=== PATIENT | male | born 1935 | race Caucasian/White ===

== ENCOUNTER 2017-06-05 09:38 | Inpatient (IN) | payer OTHER, MEDICARE ==
[~2017-06-05] VITALS: Ht 160 cm; Wt 83.6 kg
[~2017-06-05 09:38] MED LIST: AMIODARONE HCL200 MG PO; ARICEPT ODT10 MG PO; ATELVIA35 MG PO; BUS5 PO; CITRACAL + D 311 TAB PO; COZ25 PO; ENTERIC ASPIRI325 MG PO; FOLIC ACID PO; L20 PO; METOPROLOL SUCC25 M1 PO; NAMENDA10 M1 PO; NIASPAN500 MG PO; PLA75 PO; PRESERVISION AR1 SGL PO; PRI20 PO; SERTRALINE HYDR50 M1 PO; SORBITRATE PO; SOTALOL HCL AF80 MG PO; ZETIA10 M1 PO; ZOC20 PO; [UNRECOGNIZED DRUG - OTHER] PO
[2017-06-05] MEDS ORDERED: XARELTO10 M1 PO (10:12)
[2017-06-05] MEDS ORDERED: MASON NATURAL1000 IU PO (10:13)
[2017-06-05 10:35] LABS: BASOPHIL % 0.5 % (0-2); PLATELET COUNT 227 x10^3mcL (130-400); RED CELL DISTRIBUTION WIDTH 13.7 % (11.5-14.5)
[2017-06-05 10:40] LABS: CALCIUM 9.6 mg/dL (8.5-10.1); CARBON DIOXIDE 30.8 mmol/L (21-32); CHLORIDE SERUM 103 mmol/L (98-107); CREATININE SERUM 1.3 mg/dL (0.7-1.3); GLUCOSE SERUM 150 mg/dL (74-106); POTASSIUM SERUM 4.5 mmol/L (3.5-5.1); SODIUM SERUM 142 mmol/L (136-145)
[2017-06-05 10:46] LABS: ALBUMIN 3.5 g/dL (3.4-5.0); ALKALINE PHOSPHATASE 129 U/L (46-116); ALT/SGPT 23 U/L (16-63); AST/SGOT 24 U/L (15-37); BILIRUBIN TOTAL 0.64 mg/dL (0.20-1.00); TOTAL PROTEIN, SERUM 8.2 g/dL (6.4-8.2)
[2017-06-05 12:20] LABS: MAGNESIUM 2.1 mg/dL (1.8-2.4); PHOSPHOROUS 2.9 mg/dL (2.5-4.9)
[2017-06-05 12:40] LABS: T3 TOTAL 0.78 ng/mL
[2017-06-05 12:44] LABS: FREE T4 0.95 ng/dL (0.76-1.46); FREE THYROXINE INDEX 2.8 ug/dL (1.4-4.5); T4(THYROXINE) 7.7 ug/dL (4.7-13.3)
[2017-06-05 12:55] VITALS: BP 135/86
[2017-06-05 16:39] VITALS: BP 143/85
[2017-06-05 17:51] VITALS: BP 110/80
[2017-06-05 21:59] VITALS: BP 115/75
[2017-06-06 05:24] VITALS: BP 124/80
[2017-06-06 06:17] LABS: BASOPHIL % 0.4 % (0-2); PLATELET COUNT 181 x10^3mcL (130-400); RED CELL DISTRIBUTION WIDTH 13.4 % (11.5-14.5)
[2017-06-06 06:32] LABS: CALCIUM 9.3 mg/dL (8.5-10.1); CARBON DIOXIDE 29.1 mmol/L (21-32); CHLORIDE SERUM 106 mmol/L (98-107); CREATININE SERUM 1.2 mg/dL (0.7-1.3); GLUCOSE SERUM 97 mg/dL (74-106); MAGNESIUM 2.1 mg/dL (1.8-2.4); PHOSPHOROUS 2.8 mg/dL (2.5-4.9); POTASSIUM SERUM 4.8 mmol/L (3.5-5.1); SODIUM SERUM 141 mmol/L (136-145)
[2017-06-06 08:40] VITALS: BP 105/52
[2017-06-06 12:57] VITALS: BP 120/84
[2017-06-06 13:15] VITALS: BP 115/65
[2017-06-06 17:58] VITALS: BP 147/89
[2017-06-06 22:11] VITALS: BP 118/69
[2017-06-07 06:28] VITALS: BP 114/64
[2017-06-07 07:12] LABS: BASOPHIL % 0.3 % (0-2); PLATELET COUNT 184 x10^3mcL (130-400); RED CELL DISTRIBUTION WIDTH 13.8 % (11.5-14.5)
[2017-06-07 07:29] LABS: CALCIUM 9.2 mg/dL (8.5-10.1); CARBON DIOXIDE 28.7 mmol/L (21-32); CHLORIDE SERUM 105 mmol/L (98-107); CREATININE SERUM 1.1 mg/dL (0.7-1.3); GLUCOSE SERUM 87 mg/dL (74-106); POTASSIUM SERUM 4.1 mmol/L (3.5-5.1); SODIUM SERUM 140 mmol/L (136-145)
[2017-06-07 12:10] VITALS: BP 123/78
[2017-06-07 14:25] VITALS: BP 123/78
== END 2017-06-07 15:04 | disposition home or self-care (01) | DRG 918 ==
LOC: ED 09:38 → DU 11:07 → EDBEDREQ 11:08 → DU 11:53
PROVIDERS: Emergency Medicine; ADMIT Family Medicine
DX: T55.0X1A Toxic effect of soaps, accidental (unintentional), initial encounter (principal); R07.9 Chest pain, unspecified; R07.0 Pain in throat; D72.829 Elevated white blood cell count, unspecified; I48.2 Chronic atrial fibrillation; I10 Essential (primary) hypertension; I25.2 Old myocardial infarction; G30.9 Alzheimer's disease, unspecified; F02.80 Dementia in other diseases classified elsewhere, unspecified severity, without behavioral disturbance, psychotic disturbance, mood disturbance, and anxiety; Z68.32 Body mass index [BMI] 32.0-32.9, adult; Z79.01 Long term (current) use of anticoagulants; Z86.73 Personal history of transient ischemic attack (TIA), and cerebral infarction without residual deficits; Z95.5 Presence of coronary angioplasty implant and graft; Y92.000 Kitchen of unspecified non-institutional (private) residence as the place of occurrence of the external cause
CPT/HCPCS: 83880; 84439; 94150; J7030; J7620; Q0092

== ENCOUNTER 2017-08-24 15:06 | Emergency (ER) | payer OTHER, MEDICARE ==
[~2017-08-24] VITALS: Ht 160 cm; Wt 85.3 kg
[~2017-08-24 15:06] MED LIST changes: +MASON NATURAL1000 IU PO; +XARELTO10 M1 PO
[2017-08-24 15:08] VITALS: Ht 160 cm; Wt 85.3 kg
[2017-08-24 17:41] LABS: BASOPHIL % 0.7 % (0-2); PLATELET COUNT 199 x10^3mcL (130-400); RED CELL DISTRIBUTION WIDTH 13.9 % (11.5-14.5)
[2017-08-24 17:47] LABS: CALCIUM 9.1 mg/dL (8.5-10.1); CARBON DIOXIDE 27.9 mmol/L (21-32); CHLORIDE SERUM 102 mmol/L (98-107); CREATININE SERUM 1.3 mg/dL (0.7-1.3); GLUCOSE SERUM 91 mg/dL (74-106); POTASSIUM SERUM 4.8 mmol/L (3.5-5.1); SODIUM SERUM 140 mmol/L (136-145)
[2017-08-24 17:53] LABS: ALBUMIN 3.7 g/dL (3.4-5.0); ALKALINE PHOSPHATASE 118 U/L (46-116); ALT/SGPT 30 U/L (16-63); BILIRUBIN TOTAL 0.3 mg/dL (0.20-1.00); TOTAL PROTEIN, SERUM 8.1 g/dL (6.4-8.2)
[2017-08-24 17:54] LABS: AST/SGOT 25 U/L (15-37)
[2017-08-24 21:33] VITALS: BP 172/84
== END 2017-08-24 22:01 | disposition home or self-care (01) ==
LOC: ED 15:06
PROVIDERS: Emergency Medicine
DX: R07.89 Other chest pain (principal); R10.11 Right upper quadrant pain; I10 Essential (primary) hypertension; E78.00 Pure hypercholesterolemia, unspecified; G30.9 Alzheimer's disease, unspecified; F02.80 Dementia in other diseases classified elsewhere, unspecified severity, without behavioral disturbance, psychotic disturbance, mood disturbance, and anxiety; W01.0XXA Fall on same level from slipping, tripping and stumbling without subsequent striking against object, initial encounter; Y93.89 Activity, other specified; Y92.89 Other specified places as the place of occurrence of the external cause; Y99.8 Other external cause status
CPT/HCPCS: 83880; Q9967

== ENCOUNTER 2017-09-14 09:08 | Emergency (ER) | payer OTHER, MEDICARE ==
[~2017-09-14] VITALS: Ht 165.1 cm; Wt 83.9 kg
[2017-09-14 09:22] VITALS: Ht 165.1 cm; Wt 83.9 kg
[2017-09-14 10:17] VITALS: BP 119/50
== END 2017-09-14 10:17 | disposition home or self-care (01) ==
LOC: ED 09:08
DX: K04.7 Periapical abscess without sinus (principal); I10 Essential (primary) hypertension; E78.00 Pure hypercholesterolemia, unspecified; Z86.73 Personal history of transient ischemic attack (TIA), and cerebral infarction without residual deficits; Z90.49 Acquired absence of other specified parts of digestive tract

== ENCOUNTER 2017-10-01 22:54 | Inpatient (IN) | payer OTHER, MEDICARE ==
[~2017-10-01] VITALS: Ht 160 cm; Wt 88.5 kg
[~2017-10-01 22:54] MED LIST changes: +BUSPIRONE HCL15 MG PO; +CLEOCIN HCL300 MG PO; +ISOSORBIDE DINIT5 M2 PO; +LAC PO; +LEVAQUIN500 M1 PO; +METOPROLOL SUCC50 M2 PO; +PRESERVISION A1 EACH; -PRESERVISION AR1 SGL PO; +SIMVASTATIN10 M1 PO; -SORBITRATE PO; +VESICARE10 M1 PO; +VITAMIN-D1000 IU PO; +XARELTO15 M1 PO; +[UNRECOGNIZED DRUG - CODE] PO
[2017-10-01] MEDS ORDERED: AMIODARONE HCL200 MG (23:14)
[2017-10-02] VITALS (11 sets, daily range): BP systolic 89–112; BP diastolic 47–78
[2017-10-02 00:04] LABS: BASOPHIL % 0.5 % (0-2); PLATELET COUNT 204 x10^3mcL (130-400); RED CELL DISTRIBUTION WIDTH 14.2 % (11.5-14.5)
[2017-10-02 00:25] LABS: CALCIUM 9.4 mg/dL (8.5-10.1); CARBON DIOXIDE 23.3 mmol/L (21-32); CHLORIDE SERUM 103 mmol/L (98-107); CREATININE SERUM 1.2 mg/dL (0.7-1.3); GLUCOSE SERUM 162 mg/dL (74-106); POTASSIUM SERUM 4.2 mmol/L (3.5-5.1); SODIUM SERUM 134 mmol/L (136-145)
[2017-10-02 00:29] LABS: ALKALINE PHOSPHATASE 101 U/L (46-116); ALT/SGPT 25 U/L (16-63); AST/SGOT 30 U/L (15-37); BILIRUBIN TOTAL 0.6 mg/dL (0.20-1.00); TOTAL PROTEIN, SERUM 7.5 g/dL (6.4-8.2)
[2017-10-02 00:31] LABS: ALBUMIN 3.2 g/dL (3.4-5.0)
[2017-10-02 00:49] LABS: CK-MB 1.4 ng/mL (0-3.6)
[2017-10-02 02:59] LABS: CHOLESTEROL/HDL RATIO 3.1; MAGNESIUM 2.1 mg/dL (1.8-2.4); PHOSPHOROUS 3.5 mg/dL (2.5-4.9)
[2017-10-02 03:06] LABS: T3 TOTAL 0.61 ng/mL
[2017-10-02 03:09] LABS: FREE T4 1.3 ng/dL (0.76-1.46); FREE THYROXINE INDEX 3.1 ug/dL (1.4-4.5); T4(THYROXINE) 7.7 ug/dL (4.7-13.3)
[2017-10-03 06:15] LABS: PLATELET COUNT 160 x10^3mcL (130-400); RED CELL DISTRIBUTION WIDTH 14.3 % (11.5-14.5)
[2017-10-03 06:24] VITALS: BP 130/66
[2017-10-03 06:32] LABS: CALCIUM 8.9 mg/dL (8.5-10.1); CARBON DIOXIDE 26.8 mmol/L (21-32); CHLORIDE SERUM 105 mmol/L (98-107); CREATININE SERUM 1.2 mg/dL (0.7-1.3); GLUCOSE SERUM 84 mg/dL (74-106); MAGNESIUM 2.2 mg/dL (1.8-2.4); PHOSPHOROUS 2.1 mg/dL (2.5-4.9); POTASSIUM SERUM 4.4 mmol/L (3.5-5.1); SODIUM SERUM 141 mmol/L (136-145)
[2017-10-03 07:43] LABS: BAND NEUTROPHIL 12 % (0-10); MONOCYTE 5 % (0-7); SEGMENTED NEUTROPHILS 73 % (37-75)
[2017-10-03 07:44] LABS: rbc morphology (normal/abnorm) NORMAL (NORMAL)
[2017-10-03 09:45] VITALS: BP 108/52
[2017-10-03 13:48] VITALS: BP 109/75
[2017-10-03 18:37] VITALS: BP 103/69
[2017-10-03 21:15] VITALS: BP 109/53
[2017-10-04 05:48] VITALS: BP 118/59
[2017-10-04 06:13] LABS: BASOPHIL % 0.1 % (0-2); PLATELET COUNT 157 x10^3mcL (130-400); RED CELL DISTRIBUTION WIDTH 13.8 % (11.5-14.5)
[2017-10-04 06:55] LABS: CALCIUM 8.7 mg/dL (8.5-10.1); CARBON DIOXIDE 27.6 mmol/L (21-32); CHLORIDE SERUM 106 mmol/L (98-107); CREATININE SERUM 1.1 mg/dL (0.7-1.3); GLUCOSE SERUM 106 mg/dL (74-106); MAGNESIUM 2.3 mg/dL (1.8-2.4); PHOSPHOROUS 2.3 mg/dL (2.5-4.9); POTASSIUM SERUM 3.9 mmol/L (3.5-5.1); SODIUM SERUM 141 mmol/L (136-145)
[2017-10-04 09:16] VITALS: BP 101/66
[2017-10-04 12:27] VITALS: BP 109/79
[2017-10-04 20:54] VITALS: BP 122/60
[2017-10-05 04:54] VITALS: BP 118/59
[2017-10-05 06:33] LABS: BASOPHIL % 0.3 % (0-2); PLATELET COUNT 169 x10^3mcL (130-400); RED CELL DISTRIBUTION WIDTH 14.3 % (11.5-14.5)
[2017-10-05 07:06] LABS: CALCIUM 8.6 mg/dL (8.5-10.1); CARBON DIOXIDE 26.5 mmol/L (21-32); CHLORIDE SERUM 105 mmol/L (98-107); GLUCOSE SERUM 105 mg/dL (74-106); POTASSIUM SERUM 3.7 mmol/L (3.5-5.1); SODIUM SERUM 140 mmol/L (136-145)
[2017-10-05 09:41] VITALS: BP 118/71
[2017-10-05 12:23] VITALS: BP 117/78
[2017-10-05 18:33] VITALS: BP 117/78
[2017-10-05 18:41] VITALS: BP 123/61
[2017-10-05 21:17] VITALS: BP 124/67
[2017-10-06 06:19] VITALS: BP 143/91
[2017-10-06 06:40] LABS: BASOPHIL % 0.3 % (0-2); PLATELET COUNT 185 x10^3mcL (130-400); RED CELL DISTRIBUTION WIDTH 14.5 % (11.5-14.5)
[2017-10-06 06:53] LABS: CALCIUM 8.6 mg/dL (8.5-10.1); CARBON DIOXIDE 26.7 mmol/L (21-32); CHLORIDE SERUM 104 mmol/L (98-107); GLUCOSE SERUM 92 mg/dL (74-106); POTASSIUM SERUM 4.1 mmol/L (3.5-5.1); SODIUM SERUM 139 mmol/L (136-145)
[2017-10-06 10:57] VITALS: BP 142/74
[2017-10-06 14:29] VITALS: BP 142/93
[2017-10-06 18:45] VITALS: BP 123/86
[2017-10-06 19:08] LABS: UA SPECIFIC GRAVITY >=1.030 (1.005-1.035); microscopic required? YES; urine erythrocyte NEGATIVE (NEGATIVE)
[2017-10-06 22:28] VITALS: BP 98/61
[2017-10-07 06:02] VITALS: BP 132/89
[2017-10-07 06:49] LABS: PLATELET COUNT 206 x10^3mcL (130-400); RED CELL DISTRIBUTION WIDTH 14.5 % (11.5-14.5)
[2017-10-07 06:57] LABS: CALCIUM 8.5 mg/dL (8.5-10.1); CARBON DIOXIDE 24.6 mmol/L (21-32); CHLORIDE SERUM 105 mmol/L (98-107); GLUCOSE SERUM 84 mg/dL (74-106); POTASSIUM SERUM 3.6 mmol/L (3.5-5.1); SODIUM SERUM 137 mmol/L (136-145)
[2017-10-07 07:17] LABS: BASOPHIL % 0 % (0-2)
[2017-10-07 09:39] VITALS: BP 133/83
[2017-10-07 13:57] VITALS: BP 122/70
[2017-10-07 14:26] VITALS: Ht 160 cm; Wt 88.5 kg
[2017-10-07] MEDS ORDERED: LEVOFLOXACIN I100 ML IV (17:10)
[2017-10-07] MEDS ORDERED: [UNRECOGNIZED DRUG - OTHER] IV (17:11)
[2017-10-07] MEDS ORDERED: LAC PO (17:12)
[2017-10-07 17:16] VITALS: BP 116/79
== END 2017-10-07 20:12 | DRG 177 ==
LOC: ED 22:54 → DU 10-02 00:44
PROVIDERS: Emergency Medicine; Family Medicine; Student in an Organized Health Care Education/Training Program
DX: J69.0 Pneumonitis due to inhalation of food and vomit (principal); J96.00 Acute respiratory failure, unspecified whether with hypoxia or hypercapnia; I42.0 Dilated cardiomyopathy; E44.1 Mild protein-calorie malnutrition; E87.1 Hypo-osmolality and hyponatremia; I11.9 Hypertensive heart disease without heart failure; I48.2 Chronic atrial fibrillation; G30.9 Alzheimer's disease, unspecified; F02.80 Dementia in other diseases classified elsewhere, unspecified severity, without behavioral disturbance, psychotic disturbance, mood disturbance, and anxiety; R73.03 Prediabetes; F32.9 Major depressive disorder, single episode, unspecified; F41.1 Generalized anxiety disorder; D64.9 Anemia, unspecified; I25.2 Old myocardial infarction; Z68.38 Body mass index [BMI] 38.0-38.9, adult; Z95.5 Presence of coronary angioplasty implant and graft; Z79.01 Long term (current) use of anticoagulants
CPT/HCPCS: 36600; 83880; 84439; J0132; J1956; J2543; J3490; J7030; J7620; Q0092

== ENCOUNTER 2017-11-22 13:21 | Inpatient (IN) | payer OTHER, MEDICARE ==
[~2017-11-22] VITALS: Ht 165.1 cm; Wt 77.2 kg
[~2017-11-22 13:21] MED LIST changes: +AMIODARONE HCL200 MG; +LEVOFLOXACIN I100 ML IV; +[UNRECOGNIZED DRUG - OTHER] IV
[2017-11-22 13:32] VITALS: Ht 165.1 cm; Wt 77.2 kg
[2017-11-22] MEDS ORDERED: SERTRALINE50 M1 PO (17:12)
[2017-11-22] MEDS ORDERED: ISORDIL TITRADOS5 M1 PO (17:13)
[2017-11-22] MEDS ORDERED: NATURE'S BLEND F1 MG PO (17:14)
[2017-11-22] MEDS ORDERED: METOPROLOL TART25 M1 PO (17:14)
[2017-11-22] MEDS ORDERED: BUSPIRONE HCL15 MG PO (17:15)
[2017-11-22] MEDS ORDERED: XARELTO15 M1 PO (17:15)
[2017-11-22] MEDS ORDERED: CITRACAL + BON1 EACH PO (17:16)
[2017-11-22] MEDS ORDERED: SIMVASTATIN10 M1 PO (17:17)
[2017-11-22] MEDS ORDERED: DONEPEZIL HYDRO10 M2 PO (17:18)
[2017-11-22] MEDS ORDERED: NIACIN250 M2 PO (17:18)
[2017-11-22] MEDS ORDERED: OXYBUTYNIN5 M1 GT (17:19)
[2017-11-22 17:43] LABS: BASOPHIL % 0.2 % (0-2); PLATELET COUNT 238 x10^3mcL (130-400)
[2017-11-22 17:45] LABS: CALCIUM 9.4 mg/dL (8.5-10.1); CARBON DIOXIDE 25.2 mmol/L (21-32); CHLORIDE SERUM 103 mmol/L (98-107); CREATININE SERUM 1.1 mg/dL (0.7-1.3); GLUCOSE SERUM 107 mg/dL (74-106); POTASSIUM SERUM 4.8 mmol/L (3.5-5.1); SODIUM SERUM 139 mmol/L (136-145)
[2017-11-22 17:50] LABS: ALBUMIN 2.9 g/dL (3.4-5.0); ALKALINE PHOSPHATASE 86 U/L (46-116); ALT/SGPT 22 U/L (16-63); AST/SGOT 27 U/L (15-37); BILIRUBIN TOTAL 0.96 mg/dL (0.20-1.00); CHOLESTEROL 142 mg/dL (<200); CHOLESTEROL/HDL RATIO 3.1; HDL CHOLESTEROL 46 mg/dL (40-60); LIPASE 128 IU/L (73-393); TOTAL PROTEIN, SERUM 7.9 g/dL (6.4-8.2); TRIGLYCERIDES 88 mg/dL (<150)
[2017-11-22 17:58] LABS: T3 TOTAL 0.73 ng/mL
[2017-11-22 18:32] LABS: MAGNESIUM 2.2 mg/dL (1.8-2.4); PHOSPHOROUS 3.5 mg/dL (2.5-4.9)
[2017-11-22 18:42] LABS: FREE T4 1.34 ng/dL (0.76-1.46); FREE THYROXINE INDEX 2.9 ug/dL (1.4-4.5); T4(THYROXINE) 8.6 ug/dL (4.7-13.3)
[2017-11-22 19:06] VITALS: BP 119/81
[2017-11-22 21:42] LABS: RED BLOOD CELLS 4.5 M/mm3 (4.52-5.90)
[2017-11-22 21:45] LABS: IRON 24 ug/dL (65-170); TOTAL IRON BINDING CAPACITY 158 ug/dL (250-450)
[2017-11-22 21:48] VITALS: BP 123/70
[2017-11-23 05:25] VITALS: BP 114/78
[2017-11-23 06:55] LABS: CALCIUM 8.5 mg/dL (8.5-10.1); CARBON DIOXIDE 24.2 mmol/L (21-32); CHLORIDE SERUM 105 mmol/L (98-107); CREATININE SERUM 1.1 mg/dL (0.7-1.3); GLUCOSE SERUM 67 mg/dL (74-106); MAGNESIUM 2.1 mg/dL (1.8-2.4); PHOSPHOROUS 3.6 mg/dL (2.5-4.9); POTASSIUM SERUM 4.1 mmol/L (3.5-5.1); SODIUM SERUM 141 mmol/L (136-145)
[2017-11-23 07:24] LABS: BASOPHIL % 0.3 % (0-2); PLATELET COUNT 206 x10^3mcL (130-400); RED CELL DISTRIBUTION WIDTH 17.2 % (11.5-14.5)
[2017-11-23 10:13] VITALS: BP 104/62
[2017-11-23 12:37] VITALS: BP 112/67
[2017-11-23 17:51] VITALS: BP 111/63
[2017-11-23 20:21] VITALS: BP 98/50
[2017-11-24 05:38] VITALS: BP 106/67
[2017-11-24 06:45] LABS: BASOPHIL % 0.5 % (0-2); PLATELET COUNT 204 x10^3mcL (130-400)
[2017-11-24 06:50] LABS: CALCIUM 8.3 mg/dL (8.5-10.1); CARBON DIOXIDE 25.5 mmol/L (21-32); CHLORIDE SERUM 106 mmol/L (98-107); CREATININE SERUM 0.9 mg/dL (0.7-1.3); GLUCOSE SERUM 88 mg/dL (74-106); PHOSPHOROUS 2.7 mg/dL (2.5-4.9); POTASSIUM SERUM 3.7 mmol/L (3.5-5.1); SODIUM SERUM 139 mmol/L (136-145)
[2017-11-24 06:52] LABS: RED CELL DISTRIBUTION WIDTH 17.1 % (11.5-14.5)
[2017-11-24] MEDS ORDERED: IND25 PO (10:00)
[2017-11-24 10:31] VITALS: BP 108/72
== END 2017-11-24 17:28 | disposition home health service (06) | DRG 74 ==
LOC: ED 13:21 → DU 17:22
PROVIDERS: Family Medicine; Specialist; Student in an Organized Health Care Education/Training Program
DX: G62.9 Polyneuropathy, unspecified (principal); E44.0 Moderate protein-calorie malnutrition; I10 Essential (primary) hypertension; M10.9 Gout, unspecified; Z86.73 Personal history of transient ischemic attack (TIA), and cerebral infarction without residual deficits; E78.00 Pure hypercholesterolemia, unspecified; G30.9 Alzheimer's disease, unspecified; F02.80 Dementia in other diseases classified elsewhere, unspecified severity, without behavioral disturbance, psychotic disturbance, mood disturbance, and anxiety; I25.10 Atherosclerotic heart disease of native coronary artery without angina pectoris; I48.91 Unspecified atrial fibrillation; Z82.3 Family history of stroke; Z80.1 Family history of malignant neoplasm of trachea, bronchus and lung; F32.9 Major depressive disorder, single episode, unspecified; K57.30 Diverticulosis of large intestine without perforation or abscess without bleeding; K44.9 Diaphragmatic hernia without obstruction or gangrene; Z68.30 Body mass index [BMI] 30.0-30.9, adult; Z87.891 Personal history of nicotine dependence; I73.9 Peripheral vascular disease, unspecified; Q70.9 Syndactyly, unspecified
CPT/HCPCS: 83880; 84439; 97110-GP; J1885; J3010; J7030; Q0092; Q0162

== ENCOUNTER 2019-01-10 04:05 | Emergency (ER) | payer OTHER, MEDICARE ==
[~2019-01-10] VITALS: Ht 160 cm; Wt 78.9 kg
[~2019-01-10 04:05] MED LIST changes: +CITRACAL + BON1 EACH PO; +DONEPEZIL HYDRO10 M2 PO; +IND25 PO; +ISORDIL TITRADOS5 M1 PO; +METOPROLOL TART25 M1 PO; +NATURE'S BLEND F1 MG PO; +NIACIN250 M2 PO; +OXYBUTYNIN5 M1 GT; +SERTRALINE50 M1 PO
[2019-01-10 04:25] VITALS: Ht 160 cm; Wt 78.9 kg
[2019-01-10 04:55] LABS: BASOPHIL % 0.6 % (0-2); PLATELET COUNT 176 x10^3mcL (130-400); RED CELL DISTRIBUTION WIDTH 14.3 % (11.5-14.5)
[2019-01-10 05:11] LABS: CALCIUM 9.6 mg/dL (8.5-10.1); CHLORIDE SERUM 105 mmol/L (98-107); CREATININE SERUM 1.3 mg/dL (0.7-1.3); GLUCOSE SERUM 100 mg/dL (74-106); POTASSIUM SERUM 3.7 mmol/L (3.5-5.1); SODIUM SERUM 140 mmol/L (136-145)
[2019-01-10 05:15] LABS: ALKALINE PHOSPHATASE 98 U/L (46-116); ALT/SGPT 18 U/L (16-63); AST/SGOT 17 U/L (15-37); BILIRUBIN TOTAL 0.73 mg/dL (0.20-1.00); TOTAL PROTEIN, SERUM 7.1 g/dL (6.4-8.2)
[2019-01-10 06:36] VITALS: BP 115/72
== END 2019-01-10 06:36 | disposition home or self-care (01) ==
LOC: ED 04:05
PROVIDERS: Emergency Medicine
DX: K52.9 Noninfective gastroenteritis and colitis, unspecified (principal); I10 Essential (primary) hypertension; E78.00 Pure hypercholesterolemia, unspecified; Z90.89 Acquired absence of other organs
CPT/HCPCS: J7030

== ENCOUNTER 2019-01-11 11:15 | Inpatient (IN) | payer OTHER, MEDICARE ==
[~2019-01-11] VITALS: Ht 160 cm; Wt 75.0 kg
[2019-01-11 11:17] VITALS: Ht 160 cm; Wt 75.0 kg
--- NOTE | 2019-01-11 11:20 | NUR ---
PT BIBA TO ROOM 4 FOR BRIGHT RED BLOODY STOOLS THAT STARTED THIS AM. PT HAS ON AN ADULT DIAPER. HX ALZ, PER MEDICS SPOUSE HAD TOLD THEM HE IS ACTING MORE TIRED THAN USUAL.
[2019-01-11 11:52] LABS: BASOPHIL % 1.1 % (0-2); PLATELET COUNT 186 x10^3mcL (130-400)
[2019-01-11 12:00] LABS: CALCIUM 9.6 mg/dL (8.5-10.1); CARBON DIOXIDE 24.4 mmol/L (21-32); CHLORIDE SERUM 109 mmol/L (98-107); CREATININE SERUM 1.3 mg/dL (0.7-1.3); GLUCOSE SERUM 111 mg/dL (74-106); POTASSIUM SERUM 4.6 mmol/L (3.5-5.1); SODIUM SERUM 146 mmol/L (136-145)
[2019-01-11 12:05] LABS: ALBUMIN 3.4 g/dL (3.4-5.0); ALKALINE PHOSPHATASE 101 U/L (46-116); ALT/SGPT 26 U/L (16-63); AST/SGOT 29 U/L (15-37); BILIRUBIN TOTAL 0.8 mg/dL (0.20-1.00); TOTAL PROTEIN, SERUM 7.4 g/dL (6.4-8.2)
[2019-01-11 12:15] LABS: RED CELL DISTRIBUTION WIDTH 14.7 % (11.5-14.5)
--- NOTE | 2019-01-11 12:33 | NUR ---
TRIED TO HAVE BOWEL MOVEMENT ,ONLY FEW DROPS OF BRIGHT RED BLOOD , DENIES ABDOMINAL PAIN,
--- NOTE | 2019-01-11 13:11 | NUR ---
POWER GENERATION ENGINEER IN UNCONTROLLED AF WITH RVR 118/MINUTE, MEDICATED WITH CARDIZEM 10MGS
--- NOTE | 2019-01-11 14:16 | NUR ---
PATIENT HAS ARRIVED TO FLOOR VIA GUERNEY. PATIENT SEEN AMBULATING WITH ASSIST. AT BEDSIDE.
[2019-01-11 14:43] VITALS: BP 167/80
--- NOTE | 2019-01-11 14:52 | NUR ---
RECEIVED PT FROM ER VIA GURNEY ACCOMPANIED WITH NURSE, EMT AND PT'S , ALERT AND ORIENTED X 2 WITH PERIODS OF FORGETFUL, HX OF DEMENTIA, DENIES HEADACHE OR DIZZINESS, BREATHING EVEN AND UNLABORED WHILE RESTING IN BED, LUNG SOUNDS WITH EXP WHEEZING, MILD SOB ON EXERTION, NO RESP DISTRESS NOTED, ON TELE#1 A-FIB WITH BBB, DENIES CHEST PAIN, PULSES PALPABLE, NO EDEMA NOTED, MILD GENERALIZED WEAKNESS BUT ABLE TO AMBULATE WITH ASSIST, ABD SOFT WITH ACTIVE BS, NO BM AT THIS TIME, INCONTINENT, ERYTHEMA TO BUTTOCKS, DISTRIBUTION TRANSFORMER ASSEMBLER GUERLINE AT BEDSIDE AND DISCUSS THE POC WITH PT'S , PRIMARY NURSE-RUPAL AT BEDSIDE FOR CONT NURSING CARE.
--- NOTE | 2019-01-11 15:34 | NUR ---
PATIENT ASSISTED TO BR. NO BM NOTED IN TOILET BUT BRIGHT RED BLOOD NOTED ON TOILET PAPER. NO COMPLAINTS OF PAIN. PATIENT RETURNED TO BED. WILL CONTINUE TO MONITOR, CALL LIGHT IN REACH. INSTRUCTED PATIENT TO USE CALL LIGHT, AND BED ALARM INITIATED.
[2019-01-11 15:56] VITALS: BP 137/74
--- NOTE | 2019-01-11 18:44 | NUR ---
SPOKE WITH DR MINA VIA TELEPHONE FOR ORDERED COLONOSCOPY TOMORROW. DR MINA ORDERED BOWEL PREP. PATIENT CONTINUES TO BE CONFUSED, UNAWARE OF SITUATION. REQUEST TO USE TOILET Q10-15. DR MINA BELIEVES BOWEL OBSTRUCTION. BOWEL PREP INITIATED AND WILL ENDORSE TO ONCOMING NURSE FOR CONTINUATION. CRUZ REQUESTED AND APPROVED.
[2019-01-11 19:15] VITALS: BP 121/84
--- NOTE | 2019-01-11 19:15 | NUR ---
RECEIVED PT AWAKE ALERT TO NAME AND BIRTHDATE ONLY.CONFUSED OF HIS TIME AND PLACE.DENIES CHESTPAIN AT THIS TIME.BP 121/84 MMHG,HR 105.REPORTS OF BLOODY STOOL.ON BOWEL PREP FOR SCHEDULED COLONOSCOPY TOMORROW.NURSE AT BEDSIDE TO ASSIST WITH ADLS.WILL CONTINUE TO MONITOR.
--- NOTE | 2019-01-11 20:05 | NUR ---
OBTAINED TELEPHONE CONSENT FROM - FELISHA VARNER FOR COLONOSCOPY AND POSSIBLE BLOOD TRANSFUSION TOMORROW 01/12/19 WITNESSED BY ANOTHER NURSE.
[2019-01-12] VITALS (7 sets, daily range): BP systolic 108–165; BP diastolic 79–92
--- NOTE | 2019-01-12 04:44 | NUR ---
PT ON BOWEL PREP AND TOLERATED WELL.MULTIPLE BM TO SOFT PASTY BROWNISH STOOL.DENIES CHESTPAIN ALL NIGHT.NURSE AT BEDSIDE TO ASSIST WITH ADLS.ALL NEEDS ANTICIPATED AND MET.WILL CONTINUE TO MONITOR.
--- NOTE | 2019-01-12 06:07 | NUR ---
CALLED DR. Trae MINA AND MADE AWARE BOWEL NOT CLEAR YET STILL NOTED SOME PASTY RED TO BROWNISH COLORED STOOL.MD INFORMED NURSE MOST LIKELY GONNA DO COLONOSCOPY TOMORROW 01/13/19.WILL ENDORSE TO AM NURSE.
--- NOTE | 2019-01-12 06:29 | NUR ---
BP RECHECKED AFTER LOPRESSOR 50 MG PO @ 145/84 MMHG,HR 104.WILL ENDORSE TO AM NURSE
[2019-01-12 06:53] LABS: CALCIUM 10.4 mg/dL (8.5-10.1); CARBON DIOXIDE 23.2 mmol/L (21-32); CHLORIDE SERUM 112 mmol/L (98-107); CREATININE SERUM 1.4 mg/dL (0.7-1.3); GLUCOSE SERUM 172 mg/dL (74-106); POTASSIUM SERUM 3.5 mmol/L (3.5-5.1); SODIUM SERUM 151 mmol/L (136-145)
[2019-01-12 07:00] LABS: PLATELET COUNT 255 x10^3mcL (130-400)
[2019-01-12 07:06] LABS: BASOPHIL % 0 % (0-2); RED CELL DISTRIBUTION WIDTH 14.8 % (11.5-14.5)
--- NOTE | 2019-01-12 08:00 | NUR ---
RECIEVED PATIENT AWAKE AND PLEASANT BUT WITH INTERMITTNAT CONFUSION. ASSISTED OOB SEVERAL TIMES BY STAFF TO THE BEDSIDE COMODE AND IN PROCESS OF BOWEL PREP THAT APPEARS TO NOT BE SUCCESSFUL. THE PATIEN TIS STILL NOT CLEAR AT THIS TIME. ABDOMEN IS DISTENDED AND FIRM AND PATIENT WITH HYPOACTIVE BOWEL SOUNDS. REMAINS NPO ORDERED. SPOKE WITH AND SHE IS AWARE OF THE PATIENT PROGRESS. NO ACTIVE BLEEDING WITH THE LAST BM BUT NOTED THE JPREVIOUS FROM AUDIOMETRIC TECHNICIAN DID HAVE BLOOD IN BASILIO STOOL. PATIENT HAS BEEN WITH DIARRHEA TIME FOUR DAYS AND WITH BRIGHT RED BLOOD NOETD IN THE STOOL. GISELLE TAHS HISTORY OF CVA AND ON XARELTO AT HOME FOR AFIB. GISELLE BERGER A CARIAC HISTORY AN, HTN, CVA AND TIA AND DEMENTIA AND HIGH CHOLESTEROL AND WITH HISTORY F ALZHIEMERS [place] AND ARTHRITIS. TONYA CHOIS TROPONIN THAT IS NEGATIVE AND PATEINT WHT WITH REDNESS DUE TO THE INCONTINENCE AND FREQUENT STOOLS.
--- NOTE | 2019-01-12 10:57 | NUR ---
SEEN BY DR MINA AND ORDERS FOR OTHER PREP FOR THE BOWEL NOTED. DR REQUESTED BLADDER SCAN AND THE BLADDER SHOWS SANNA 16ML. PATIENT CONTINUED WITH BOWEL PREP BUT WAS NOT CLEAR WHEN THE TESTING WAS TO BE DOWN. SO CONTINUED BNOW ON MIRALAX AND MAGNESIUM CITRATE AND SENOKOT. PATIENT TOOK THAT AND HIS MEDICATIONS BUT THREW UP THE CITRATE AND THE MIRALAX AND IT IS BROWN IN COLOR. CALLED DR MINA FOR POSSIBLE NG PLACEMENT.
--- NOTE | 2019-01-12 11:17 | NUR ---
CALLED THE GEOSCIENCE LABORATORY TECHNICIAN AND SHE IS TO ORDER BREATHIGN TREATMENT FOR THE PATIETN . PLACED THE PATIENT ON 02 AND AWAITING CALL BACK FROM DR MINA FOR THE VOMITING AND POSSIBLE NEED FOR NG PLACEMENT. PATIENT COMPLAINED OF CHEST DISCOMFORT AND HAS BEEN WITH A BLUENESS TO THE LIPS AND HANDS. ENCOURAGE PURSED LIP BREATHING AND HOB. STAFF AT BEDSIDE. WILL CONTINUE TO MONITOR.
--- NOTE | 2019-01-12 11:44 | NUR ---
SPOKE WITH DR MINA AND THE PATIENT IS FOR NG PLACEMENT AND THE RESULTS OF THE KUB HAS NOT BEEN PROCESSED. YET. PATIENT HAD RECEIVE THE MIRALAX AND THEN THE MAG CITRATE HE WAS SIPPING ON JUST BEFORE THE KUB. HE VOMITING POST THE XRAY. WILL CONTINUE TO MONITOR AND WILL PLACE NG WHEN PATIETN IS STABLE ENOUGH TO DO SO.
--- NOTE | 2019-01-12 12:26 | NUR ---
TO CLARIFY THE PATIEN ROBERT AN XRAY KUB AND THEN THREW UP HIS STOMACH CONTENTS AND AT THAT TIME FELT CHEST JPAIN AND SOB AND HAD LOW SATURATION IN THAT ORDER.
--- NOTE | 2019-01-12 12:32 | NUR ---
PATIENT NPG PLACED AND PATIENT HAD OUTPUT BUT A LOT WENT TO THE BED RATHER THAN THE CANISTER DUE TO THE CONNECTION SLIPPED OFF SEVERAL TIMES BEFORE IT WAS SECURE. THE POUTPUT IS DARK BROWN AND ALMOST BLACK. THE PATIENT TOLERATE WELL AND IS ON NON REBREATHER FOR THE LOW SATURATION AND AT 93% 02 AT THIS TIME. WILL CONTINUE TO MONITOR.
--- NOTE | 2019-01-12 14:44 | NUR ---
PATIENT NG IS CLAMPED FOR THE MEDICATIONS AND WILL RE ATTACHED IN AN HOUR INDICATED.
--- NOTE | 2019-01-12 18:53 | NUR ---
DR MINA CALLED AND ORDERED CHANGES IN THE MEDICATIONS TO BE GIVEN AND HE ORDERED FLEET S ENEMA TONIGHT AND AGAIN IN THE AM. ALSO ORDERED ACUTE ABDOMINAL SERIES XRAY AND TO GIVE ONLY SENOKOT THROUGH THE G TUBE AND DISCONTINEU THE MIRALAX AND THE LACTULOSE, WELL MAG CITRATE. PATIENT HAS BEEN TOLERATING THE NG WELL. PULLED OUT THE TUBE SLIGHTLY DIRRECTED AND CLAMPED AT THIS TIME FOR SENOKOT GIVEN. WILL ENDORSE TO THE NEXT SHIFT INDICATED.
--- NOTE | 2019-01-12 18:58 | NUR ---
PHARMACY CALLED TO MELODYY THE ROCPHIN AND THE ZITHROMAX AND NURSING COULD NOT GIVE THE ANSWER TO THE PHARMACY ON WHY THIS WAS ORDERED WHEN ALREADY THE LEVAQUIN AND THE FLAGYL ARE IN PLACE. REFUSED TO THE PRACTICIONER FOR HER INDICATIONS. PATIENT HAS BEEN WITH ELEVATED WBC AT 17.0 AND WITH THE ATELECTASIS AND CONCERN ABOUT ASPIRATION WITH THE BOWEL PREP AND HSI REGURGIATION DUE TO OBSTRUCTED AND DISTENTION WAS NOTED. AT BEDSIDE AND SHE WAS INVOLVED IN THE PATIEN TCARE AND SHE WILL RETURN IN THE MORNIGN. ADVISE THAT IF THE PATEINT IS CLEAR THE COLONOSCOPY WILL TAKE PLACE OTHER GIRARD DR MINA WILL ALTERNATELY USE A DIFFERENT APPROACH. . PATIENT DOES NOT APPEAR IN PAIN AT THIS TIME.
--- NOTE | 2019-01-12 19:20 | NUR ---
REPORT RECEIVED FROM DAY SHIFT RN. PATIENT WAS SEEN AND IS RESTING COMFORTABLY IN BED. NO DISTRESS NOTED. BREATHING EVEN ON 15L NONREBREATHER MASK. NO SOB OR RESP DISTRESS NOTED. DENIES CHEST PAIN. NO C/O PAIN. IV TO THE LAC. INFUSING WELL. PATENT AND INTACT. NO REDNESS OR SWELLING NOTED. NGT TO THE RIGTHT NARE ON LOW INTERMITTEN SUCTION WITH BLACK OUTPUT IN CANISTER. NO OUTPUT NOTED AT THIS TIME. A/OX2. CONFUSED. ABLE TO MAKE NEEDS KNOWN AND COOPERATIVE. SAFETY MEASURES IN PLACE. BED IS LOCKED AND IN THE LOWEST POSITION. SIDE RAILS UP X2. CALL LIGHT IS WITHIN REACH. WILL CONTINUE TO MONITOR.
--- NOTE | 2019-01-12 22:03 | NUR ---
STOPPED NGT SUCTION. MEDS GIVEN THROUGH NGT. NO RESIDUALS NOTED. PATIENT TOLERATED WELL. WILL RESUME SUCTION LATER. DENIES PAIN. BREATHING EVEN AND UNLABORED. IVF INFUSING WELL. SAFETY MEASURES IN PLACE. CALL LIGHT IS WITHIN REACH. WILL CONTINUE TO MONITOR.
--- NOTE | 2019-01-12 23:05 | NUR ---
FLEET ENEMA ADMINSITERED TO THE PATIENT WHILE PATIENT WAS LYING ON HIS LEFT SIDE. EDUCATED PATIENT ON THE PROCEDURE. PATIENT TOLERATED WELL. EDUCATED PATIENT TO STAY ON LEFT SIDE LONG HE CAN. SMALL AMOUNT OF DUMAS/YELLOW STOOL CAME OUT DURING ENEMA ADMINISTRATION. PATIENT IS LAYING ON HIS LEFT SIDE AT THIS TIME. NO DISTRESS NOTED. BREATHING EVEN AND UNLABORED ON NONREBREATHER MASK. CALL LIGHT IS WITHIN REACH. WILL CONTINUE TO MONITOR.
--- NOTE | 2019-01-13 01:47 | NUR ---
PATIENT IS RESTING IN BED WITH EYES. NO DISTRESS NOTED. BREATHING EVEN ON 15L NONREBREATHER MASK. NGT TO RIGHT NARE TO LOW INTERMITTENT SUCTION. IV TO THE LAC INFUSING WELL. PATENT AND INTACT. NO REDNESS OR SWELLING NOTED. SAFETY MEASURES IN PLACE. CALL LIGHT IS WITHIN REACH. WILL CONTINUE TO MONITOR.
--- NOTE | 2019-01-13 03:45 | NUR ---
RT REPORTED THAT HE CHANGED THE PATIENT TO A VENTURI MASK AT 15L.
--- NOTE | 2019-01-13 04:18 | NUR ---
PT PLACED ON VENTURI MASK 15L FIO2 50% @ 0310 SAT 93%. RN MADE AWARE.
--- NOTE | 2019-01-13 05:31 | NUR ---
ADMINISTERED MORNING FLEET ENEMA. PATIENT PLACED ON LEFT SIDE BEFORE PROCEDURE. EDUCATED PATIENT ON PROCEDURE BEFORE ADMINISTRATION. PATIENT TOLERATED PROCEDURE WELL. STOOL IS STILL LIQUID BROWN WAS SCANT CHUNKS. EDUCATED PATIENT TO STAY ON LEFT SIDE. PATIENT DEMONSTRATED UNDERSTANDING. NO DISTRESS NOTED. BREATHING EVEN AND UNLABORED ON VENTURI MASK. CALL LIGHT IS WITHIN REACH. SAFETY PRECAUTIONS IN PLACE. WILL CONTINUE TO MONITOR.
[2019-01-13 05:55] VITALS: BP 127/82
--- NOTE | 2019-01-13 06:55 | NUR ---
LEWIS PENA, CLEANED PATIENT AFTER FLEET ENEMA AND REPORTED THAT STOOL IS LIQUID BROWN. WILL ENDORSE CARE TO DAY SHIFT RN
--- NOTE | 2019-01-13 07:00 | NUR ---
GAVE REPORT TO FIOR FROM GI LAB.
--- NOTE | 2019-01-13 07:03 | NUR ---
RECEIVED BEDSIDE REPORT FROM PAYROLL AND BENEFITS SPECIALIST NURSE. PATIENT IS PENDING GI STUDY ENDOSCOPY. CONSENT AND CHECKLIST COMPLETED AND IN CHART. ON 15L MASK. NO APPARENT SIGNS OF PAIN. IV TO RIGHT AC INFUSING D5, 1/2 NS AT 100ML/HR. NO EDEMA OR ERYTHEMA NOTED TO SITE. SCD'S AT BEDSIDE. RESPIRATIONS EVEN, NOT LABORED. ON AIR MATTRESS. BED IN LOW POSITION SAFETY PREACUTIONS IN PLACE.
--- NOTE | 2019-01-13 07:49 | NUR ---
IRA PAYAN AT BEDSIDE.
[2019-01-13 08:12] LABS: PLATELET COUNT 215 x10^3mcL (130-400)
[2019-01-13 08:29] LABS: CALCIUM 9.8 mg/dL (8.5-10.1); CARBON DIOXIDE 28.7 mmol/L (21-32); CHLORIDE SERUM 113 mmol/L (98-107); CREATININE SERUM 1.6 mg/dL (0.7-1.3); GLUCOSE SERUM 119 mg/dL (74-106); POTASSIUM SERUM 3.3 mmol/L (3.5-5.1); RED CELL DISTRIBUTION WIDTH 14.9 % (11.5-14.5); SODIUM SERUM 153 mmol/L (136-145)
--- NOTE | 2019-01-13 08:39 | NUR ---
RECEIVED ORDER FOR CLAMP NG TUBE FROM MD MINA. NG TUBE CLAMPED.
--- NOTE | 2019-01-13 08:40 | NUR ---
PATIENT REFUSED FLEET ENEMA.
[2019-01-13 08:53] LABS: BASOPHIL 0 % (0-2); MONOCYTE 4 % (0-7); SEGMENTED NEUTROPHILS 78 % (37-75)
[2019-01-13 08:54] LABS: PLATELET MORPHOLOGY PLATELETS DECREASED
[2019-01-13 09:03] LABS: BAND NEUTROPHIL 13 % (0-10)
--- NOTE | 2019-01-13 09:08 | NUR ---
RECEIVED CALL FROM LAB CRITICAL VALUE FOR BANDS (IMMATURE NEUTROPHIL CELLS). PAGED ORA CLINICAL APPLICATION SPECIALIST. WAITING FOR CLINICAL APPLICATION SPECIALIST TO CALL BACK.
[2019-01-13 09:30] VITALS: BP 143/91
[2019-01-13 09:33] LABS: rbc morphology (normal/abnorm) ABNORMAL (NORMAL)
--- NOTE | 2019-01-13 09:43 | NUR ---
ADMINISTERED MEDICATION PER EMAR. PATIENT EDUCATED ON NEED FOR MEDICATION WELL ADVERSE EFFECTS TO REPORT. PATIENT VERBALIZED UNDERSATNDING. TOLORTATED WELL. QUESTIONS AND CONCERNS ADDRESSED. PATIENT DENIES OTHER NEEDS AT THIS TIME. SAFETY PRECAUTIONS IN PLACE.
--- NOTE | 2019-01-13 09:45 | NUR ---
PATIENT GOING DOWN FOR BARIUM ENEMA. PATIENT STABLE NO APPARENT SIGNS OF PAIN. PATIENT DENIES SOB, OR RESPIRATORY DISTRESS. PATIENT TRANSPORTED BY GURNEY. PORTABLY OXYGEN AT 15L.
--- NOTE | 2019-01-13 10:34 | NUR ---
PATIENT BACK FROM BARIUM ENEMA . PATIENT IS STABLE, DENIES PAIN, SOB, OR RESPIRATORY DISTRESS. IV RECONNECTED, CONNECTED TO WALL OXYGEN 15L TO MASK. SAFETY PRECAUTIONS IN PLACE.
[2019-01-13 13:07] VITALS: BP 130/58
[2019-01-13 17:57] VITALS: BP 134/72
--- NOTE | 2019-01-13 19:26 | NUR ---
ENDORSED CARE TO CUT AND COVER LINE WORKER NURSE
--- NOTE | 2019-01-13 19:55 | NUR ---
RECEIVED REPORT FROM DAY SHIFT RN. PT RESTING WITH EYES CLOSED. AROUSABLE WITH VERBAL STIMULI. ORIENTED TO X2. REORIENTED TO TIME. IV TO LAC, INTACT. ON O2 12L VIA VENTURI MASK. NO SOB NOTED. NG TUBE TO RIGHT NARE, CLAMPED. NO C/O PAIN AT THIS TIME. SAFETY MEASURES IN PLACE. BED IN LOWEST POSITION. SIDE RAILS UP X2. CALL LIGHT WITHIN REACH.
--- NOTE | 2019-01-13 21:26 | NUR ---
NG TUBE NOT FLUSHING. NEW NGT INSERTED 16FR TO RIGHT NARE. PT TOLERATED THE PROCEDURE WELL. XR ABD: KUB ORDERED FOR PLACEMENT VERIFICATION.
[2019-01-13 21:43] VITALS: BP 132/86
--- NOTE | 2019-01-13 22:30 | NUR ---
NG TUBE PLACEMENT VERIFIED. DR RENAE MADE AWARE.
--- NOTE | 2019-01-14 04:00 | NUR ---
PT PULLED OUT NG TUBE. PER DR. RENAE HOLD OFF ON NG TUBE REINSERTION.
[2019-01-14 05:57] VITALS: BP 137/74
[2019-01-14 06:03] LABS: PLATELET COUNT 207 x10^3mcL (130-400)
[2019-01-14 06:08] LABS: CALCIUM 9.5 mg/dL (8.5-10.1); CARBON DIOXIDE 27.4 mmol/L (21-32); CHLORIDE SERUM 117 mmol/L (98-107); CREATININE SERUM 1.5 mg/dL (0.7-1.3); GLUCOSE SERUM 133 mg/dL (74-106); POTASSIUM SERUM 3.2 mmol/L (3.5-5.1); SODIUM SERUM 155 mmol/L (136-145)
[2019-01-14 06:40] LABS: RED CELL DISTRIBUTION WIDTH 15.5 % (11.5-14.5)
--- NOTE | 2019-01-14 07:00 | NUR ---
PT RESTING WITH EYES CLOSED. BREATHING EVEN AND UNLABORED. ON O2 VIA VENTURI MASK 12L. NO FACIAL GRIMACING. NO DISTRESS NOTED. SAFETY MEASURES MAINTAINED. CALL LIGHT WITHIN REACH. ALL NEEDS ATTENDED TO. WILL ENDORSE CONTINUITY OF CARE TO ONCOMING RN.
--- NOTE | 2019-01-14 07:20 | NUR ---
RECEIVED PT FROM NIGHT NURSE. PT IS LAYING DOWN IN BED WITH HOB UP RESTING. RESPIRATIONS EVEN AND UNLABORED ON VENTURI MASK. TELE MONITOR PRESENT. IV SITE PATENT WITH NO SIGNS OF ERYTHEMA OR SWELLING WITH IV FLUIDS INFUSING. BED IN LOWEST POSITION, CALL LIGHT WITHIN REACH. WILL CONTINUE TO MONITOR.
[2019-01-14 08:06] VITALS: BP 117/81
[2019-01-14 08:38] LABS: BAND NEUTROPHIL 4 % (0-10); BASOPHIL 0 % (0-2); MONOCYTE 4 % (0-7); SEGMENTED NEUTROPHILS 86 % (37-75)
[2019-01-14 08:39] LABS: PLATELET MORPHOLOGY PLATELETS DECREASED; rbc morphology (normal/abnorm) ABNORMAL (NORMAL)
--- NOTE | 2019-01-14 09:30 | NUR ---
PT HAD DARK GREEN WATERY STOOL. MAURICIO-AREA HAS ERYTHEMA AND IS MOIST AND PAINFUL WITH TOUCH. CLEANED UP PT AND APPLIED TOPICAL MEDICATION. REPOSITIONED PT. PT LOOKS TO BE IN NO ACUTE DISTRESS AT THIS TIME AND DENIES ANY PAIN. WILL CONITNUE TO MONITOR.
--- NOTE | 2019-01-14 11:15 | NUR ---
PT TAKEN DOWN FOR COLONOSCOPY
--- NOTE | 2019-01-14 13:10 | NUR ---
PT RETURNED FROM COLONOSCOPY. PT LOOKS TO BE IN NO ACUTE DISTRESS AT THIS TIME. CURRENT VITAL SIGNS ARE BP: 122/64, MAP: 76, HR: 95, RR: 20, O2 SAT: ON VENTURI MASK 12L, AND TEMP 97.9. PT EASILY AROUSABLE AND IS ASKING WHEN HIS WILL BE AT THE HOSPITAL. APPLIED SCD BILATERALLY AND APPLIED AIR MATTRESS. BED IN LOWEST POSITION, CALL LIGHT WITHIN REACH. WILL CONTINUE TO MONITOR.
[2019-01-14] MEDS ORDERED: FLA500 IV (14:53)
[2019-01-14] MEDS ORDERED: NOVAPLUS ZOSYN50 M1 IV (14:54)
--- NOTE | 2019-01-14 15:45 | NUR ---
CALLED TO GIVE REPORT TO SANIA JACKSON AT [facility] [place]. PT WILL BE TRANSFERED TO [facility] [place] AND WILL BE GOING TO ROOM 201B UNDER THE CARE OF DR. JEAN. SCHEDULED TRANSFER FOR 1944 BY [facility]. PATIENT AND FAMILY MEMBER AWARE OF TRANSFER AND AGREEABLE.
[2019-01-14 16:33] VITALS: BP 108/70
[2019-01-14 17:47] VITALS: BP 108/70
--- NOTE | 2019-01-14 18:28 | NUR ---
PATIENT UNABLE TO GIVE CONSENT FOR TRANSFER FOR ABLE TO UNDERSTAND DISCHARGE INFORMATION. CALLED PATIENT'S FAMILY MEMBER, , AND GOT TELEPHONE CONSENT FOR THE TRANSFER OF THE PATIENT TO [facility]. ALSO INFORMED FAMILY MEMBER OF DISCHARGE INSTRUCTIONS INCLUDING HOSPTIAL STAY, EDUCATION, NEW MEDICATIONS, MEDICARE RIGHTS AND BELONGINGS. FAMILY MEMBER VERBALIZED UNDERSTANDING AND GAVE TELEPHONE CONSENT. ALSO INFORMED FAMILY MEMBER OF PATIENT'S FOLLOW UP APPOINTMENT, FAMILY MEMBER VERBALIZED UNDERSTANDING. ALL QUESTIONS AND CONCERNS ADDRESSED. VERIFIED CONSENT WITH SECOND RN. PAPERWORK SIGNED AND PUT INTO PATIENT'S CHART. AWAITING TRANSFER FOR 1944 WITH [facility].
--- NOTE | 2019-01-14 18:54 | NUR ---
PT IS LAYING DOWN IN BED WITH HOB UP RESTING WITH EYES CLOSED, PT EASILY AROUSABLE. PT LOOKS TO BE IN NO ACUTE DISTRESS AND DENIES ANY PAIN. RESPIRATIONS EVEN AND UNLABORED ON 10L VENTURI MASK. IV SITE PATENT WITH NO SIGNS OF ERYTHEMA OR SWELLING WITH IV FLUIDS INFUSING. BED IN LOWEST POSITION, CALL LIGHT WITHIN REACH. WILL ENDORSE TO ONCOMING SHIFT.
--- NOTE | 2019-01-14 20:42 | NUR ---
PT DISCHARGE TO [facility]IA [facility].ASSISTED BY 2 ATTENDANT [facility].ALL BELONGINGS SENT WITH PT.DISCHARGE POCKETS GIVE.D/C TELE MONITORING.PT VERBALLY RESPONSIVE.IN NO DISTRESS.
== END 2019-01-14 20:40 | DRG 377 ==
LOC: ED 11:15 → DU 13:01
PROVIDERS: Emergency Medicine; Internal Medicine; Internal Medicine Gastroenterology; ADMIT Internal Medicine
PROC: 0DBF8ZX Excision of Right Large Intestine, Via Natural or Artificial Opening Endoscopic, Diagnostic (ICD-10-PCS; principal; 2019-01-14 11:00)
DX: K92.1 Melena (principal); J69.0 Pneumonitis due to inhalation of food and vomit; I42.0 Dilated cardiomyopathy; K56.41 Fecal impaction; I48.2 Chronic atrial fibrillation; I10 Essential (primary) hypertension; K86.9 Disease of pancreas, unspecified; K44.9 Diaphragmatic hernia without obstruction or gangrene; R32 Unspecified urinary incontinence; J44.9 Chronic obstructive pulmonary disease, unspecified; E78.5 Hyperlipidemia, unspecified; I25.10 Atherosclerotic heart disease of native coronary artery without angina pectoris; G30.9 Alzheimer's disease, unspecified; F02.80 Dementia in other diseases classified elsewhere, unspecified severity, without behavioral disturbance, psychotic disturbance, mood disturbance, and anxiety; I25.2 Old myocardial infarction; Z68.24 Body mass index [BMI] 24.0-24.9, adult; Z87.891 Personal history of nicotine dependence; Z95.5 Presence of coronary angioplasty implant and graft; Z86.73 Personal history of transient ischemic attack (TIA), and cerebral infarction without residual deficits
CPT/HCPCS: 45378; 97530-GP; G0378; J0456; J0696; J1160; J1200; J1610; J1956; J2250; J2310; J2543; J3010; J3480; J3490; J7030; J7042; J7050; J7131; J7620; Q0092; Q9967

== ENCOUNTER 2019-04-01 21:19 | Inpatient (IN) | payer OTHER, MEDICARE ==
[~2019-04-01] VITALS: Ht 165.1 cm; Wt 88.5 kg
[~2019-04-01 21:19] MED LIST changes: +FLA500 IV; +NOVAPLUS ZOSYN50 M1 IV
[2019-04-01 21:20] VITALS: Ht 165.1 cm; Wt 88.5 kg
[2019-04-01 22:49] LABS: BASOPHIL % 0.8 % (0-2); PLATELET COUNT 170 x10^3mcL (130-400)
[2019-04-01 22:50] LABS: RED CELL DISTRIBUTION WIDTH 16.1 % (11.5-14.5)
[2019-04-01 22:56] LABS: CALCIUM 9.1 mg/dL (8.5-10.1); CARBON DIOXIDE 28.3 mmol/L (21-32); CHLORIDE SERUM 109 mmol/L (98-107); CREATININE SERUM 1.2 mg/dL (0.7-1.3); GLUCOSE SERUM 103 mg/dL (74-106); POTASSIUM SERUM 4.1 mmol/L (3.5-5.1); SODIUM SERUM 143 mmol/L (136-145)
[2019-04-01 23:01] LABS: ALBUMIN 3.3 g/dL (3.4-5.0); ALKALINE PHOSPHATASE 120 U/L (46-116); ALT/SGPT 19 U/L (16-63); AST/SGOT 19 U/L (15-37); BILIRUBIN TOTAL 0.27 mg/dL (0.20-1.00); TOTAL PROTEIN, SERUM 7.1 g/dL (6.4-8.2)
[2019-04-02] MEDS ORDERED: ASPIR 8181 MG PO (00:15)
[2019-04-02] MEDS ORDERED: ISOSORBIDE MONO60 MG PO (00:15)
[2019-04-02] MEDS ORDERED: CITRACAL + D E1 EACH PO (00:15)
[2019-04-02] MEDS ORDERED: NIASPAN500 MG PO (00:16)
[2019-04-02 00:57] LABS: T3 TOTAL 0.89 ng/mL
[2019-04-02 01:01] LABS: microscopic required? NO
[2019-04-02 01:04] LABS: CHOLESTEROL/HDL RATIO 3.8; MAGNESIUM 2.3 mg/dL (1.8-2.4); PHOSPHOROUS 4.1 mg/dL (2.5-4.9)
[2019-04-02 01:12] LABS: FREE T4 0.77 ng/dL (0.76-1.46); FREE THYROXINE INDEX 1.7 ug/dL (1.4-4.5); T4(THYROXINE) 4.7 ug/dL (4.7-13.3)
[2019-04-02 01:20] VITALS: BP 121/66
[2019-04-02 01:36] VITALS: BP 121/66
[2019-04-02 01:57] LABS: urine erythrocyte NEGATIVE (NEGATIVE)
[2019-04-02 02:10] LABS: AMPHETAMINE QUAL UR NONE DETECTED (See below)
[2019-04-02 05:41] VITALS: BP 121/75
[2019-04-02 07:18] LABS: BASOPHIL % 0.3 % (0-2); PLATELET COUNT 172 x10^3mcL (130-400)
[2019-04-02 07:22] LABS: RED CELL DISTRIBUTION WIDTH 15.8 % (11.5-14.5)
[2019-04-02 07:56] LABS: CARBON DIOXIDE 27.4 mmol/L (21-32); CHLORIDE SERUM 105 mmol/L (98-107); CREATININE SERUM 1.5 mg/dL (0.7-1.3); GLUCOSE SERUM 164 mg/dL (74-106); PHOSPHOROUS 2.5 mg/dL (2.5-4.9); POTASSIUM SERUM 4.2 mmol/L (3.5-5.1); SODIUM SERUM 142 mmol/L (136-145)
[2019-04-02 12:13] VITALS: BP 98/57
[2019-04-02 16:37] VITALS: BP 113/65
[2019-04-02 20:51] VITALS: BP 112/73
[2019-04-03 06:05] VITALS: BP 119/72
[2019-04-03 07:49] LABS: BASOPHIL % 0.1 % (0-2); PLATELET COUNT 184 x10^3mcL (130-400)
[2019-04-03 07:58] LABS: RED CELL DISTRIBUTION WIDTH 15.9 % (11.5-14.5)
[2019-04-03 08:02] LABS: CALCIUM 9.3 mg/dL (8.5-10.1); CARBON DIOXIDE 27.6 mmol/L (21-32); CHLORIDE SERUM 105 mmol/L (98-107); CREATININE SERUM 1.4 mg/dL (0.7-1.3); GLUCOSE SERUM 110 mg/dL (74-106); PHOSPHOROUS 3.6 mg/dL (2.5-4.9); POTASSIUM SERUM 4.3 mmol/L (3.5-5.1); SODIUM SERUM 142 mmol/L (136-145)
[2019-04-03 08:20] VITALS: BP 116/69
[2019-04-03 11:40] VITALS: BP 101/66
[2019-04-03 16:49] VITALS: BP 102/60
[2019-04-03 20:51] VITALS: BP 105/58
[2019-04-04 05:10] VITALS: BP 124/80
[2019-04-04 06:24] LABS: BASOPHIL % 0.4 % (0-2); PLATELET COUNT 158 x10^3mcL (130-400)
[2019-04-04 06:34] LABS: RED CELL DISTRIBUTION WIDTH 16.3 % (11.5-14.5)
[2019-04-04 06:38] LABS: CALCIUM 8.7 mg/dL (8.5-10.1); CARBON DIOXIDE 25.9 mmol/L (21-32); CHLORIDE SERUM 107 mmol/L (98-107); CREATININE SERUM 1.1 mg/dL (0.7-1.3); GLUCOSE SERUM 88 mg/dL (74-106); POTASSIUM SERUM 4.3 mmol/L (3.5-5.1); SODIUM SERUM 143 mmol/L (136-145)
[2019-04-04 07:18] VITALS: BP 114/83
[2019-04-04] MEDS ORDERED: LEVOFLOXACIN500 M1 PO (09:59)
[2019-04-04] MEDS ORDERED: PREDNISONE20 MG PO (09:59)
[2019-04-04 11:56] VITALS: BP 114/83
[2019-04-04 12:06] VITALS: BP 119/76
== END 2019-04-04 15:15 | DRG 190 ==
LOC: ED 21:19 → DU 23:48
PROVIDERS: Emergency Medicine; ADMIT Internal Medicine
DX: J44.1 Chronic obstructive pulmonary disease with (acute) exacerbation (principal); N17.0 Acute kidney failure with tubular necrosis; E44.1 Mild protein-calorie malnutrition; F03.90 Unspecified dementia, unspecified severity, without behavioral disturbance, psychotic disturbance, mood disturbance, and anxiety; I48.91 Unspecified atrial fibrillation; I11.9 Hypertensive heart disease without heart failure; I25.10 Atherosclerotic heart disease of native coronary artery without angina pectoris; E78.5 Hyperlipidemia, unspecified; Z79.82 Long term (current) use of aspirin; Z99.81 Dependence on supplemental oxygen; Z87.891 Personal history of nicotine dependence; Z68.26 Body mass index [BMI] 26.0-26.9, adult; Z95.5 Presence of coronary angioplasty implant and graft; Z86.73 Personal history of transient ischemic attack (TIA), and cerebral infarction without residual deficits
CPT/HCPCS: 83880; 84439; 94150; 97116-GP; G0378; J1100; J1940; J7030; J7620; Q0092

== ENCOUNTER 2020-03-05 12:04 | Emergency (ER) | payer OTHER, MEDICARE ==
[~2020-03-05] VITALS: Ht 160 cm; Wt 78.9 kg
[~2020-03-05 12:04] MED LIST changes: +ASPIR 8181 MG PO; +CITRACAL + D E1 EACH PO; +ISOSORBIDE MONO60 MG PO; +LEVOFLOXACIN500 M1 PO; +PREDNISONE20 MG PO
[2020-03-05 12:07] VITALS: Ht 160 cm; Wt 78.9 kg
[2020-03-05 13:40] LABS: BASOPHIL % 0.3 % (0-2); PLATELET COUNT 201 x10^3mcL (130-400)
[2020-03-05 13:47] LABS: CALCIUM 9.4 mg/dL (8.5-10.1); CARBON DIOXIDE 24.3 mmol/L (21-32); CHLORIDE SERUM 104 mmol/L (98-107); CREATININE SERUM 1.5 mg/dL (0.7-1.3); GLUCOSE SERUM 100 mg/dL (74-106); POTASSIUM SERUM 4.3 mmol/L (3.5-5.1); SODIUM SERUM 139 mmol/L (136-145)
[2020-03-05 13:51] LABS: ALKALINE PHOSPHATASE 110 U/L (46-116); ALT/SGPT 22 U/L (16-63); AST/SGOT 22 U/L (15-37); BILIRUBIN TOTAL 1.4 mg/dL (0.20-1.00); MAGNESIUM 2.2 mg/dL (1.8-2.4)
[2020-03-05 13:53] LABS: ALBUMIN 3.1 g/dL (3.4-5.0)
[2020-03-05 14:23] LABS: FREE T4 1.04 ng/dL (0.76-1.46); FREE THYROXINE INDEX 2.4 ug/dL (1.4-4.5); T4(THYROXINE) 6.5 ug/dL (4.7-13.3)
[2020-03-05 14:44] VITALS: BP 109/78
== END 2020-03-05 14:44 | disposition home or self-care (01) ==
LOC: ED 12:04
PROVIDERS: Emergency Medicine
DX: I48.20 Chronic atrial fibrillation, unspecified (principal); I10 Essential (primary) hypertension; E78.00 Pure hypercholesterolemia, unspecified; Z86.73 Personal history of transient ischemic attack (TIA), and cerebral infarction without residual deficits; Z90.89 Acquired absence of other organs
CPT/HCPCS: 84439; Q0092

== ENCOUNTER 2020-04-04 01:14 | Emergency (ER) | payer OTHER, MEDICARE ==
[~2020-04-04] VITALS: Ht 170.2 cm; Wt 86.2 kg
[~2020-04-04 01:14] MED LIST changes: +ARICEPT10 MG PO; +ASPIRIN FOR CHI81 M1 PO; +DELTASONE20 MG PO; +LIPITOR80 MG PO; +NASAL MIST126 ML; +TOPROL XL50 MG PO
[2020-04-04 01:37] VITALS: Ht 170.2 cm; Wt 86.2 kg
[2020-04-04 03:30] VITALS: BP 119/62
== END 2020-04-04 03:30 | disposition home or self-care (01) ==
LOC: ED 01:14
DX: S40.011A Contusion of right shoulder, initial encounter (principal); I10 Essential (primary) hypertension; Z86.73 Personal history of transient ischemic attack (TIA), and cerebral infarction without residual deficits; Z90.89 Acquired absence of other organs; W07.XXXA Fall from chair, initial encounter; Y93.89 Activity, other specified; Y92.89 Other specified places as the place of occurrence of the external cause; Y99.8 Other external cause status
CPT/HCPCS: Q0092

== ENCOUNTER 2020-08-15 10:51 | Emergency (ER) | payer OTHER, MEDICARE ==
[~2020-08-15] VITALS: Ht 177.8 cm; Wt 74.8 kg
[2020-08-15] MEDS ORDERED: NAP500 PO (11:57)
[2020-08-15] MEDS ORDERED: ACETAMINOPHEN500 M5 PO (11:57)
[2020-08-15 13:06] VITALS: BP 124/71
== END 2020-08-15 13:06 | disposition home or self-care (01) ==
LOC: ED 10:51
DX: M25.511 Pain in right shoulder (principal); I10 Essential (primary) hypertension; F03.90 Unspecified dementia, unspecified severity, without behavioral disturbance, psychotic disturbance, mood disturbance, and anxiety; X58.XXXA Exposure to other specified factors, initial encounter; Y93.89 Activity, other specified; Y92.89 Other specified places as the place of occurrence of the external cause; Y99.8 Other external cause status